=== PATIENT | female | born 1970 | race Asian ===

== ENCOUNTER → 2018-11-11 | Outpatient (CLI) | payer OTHER ==
[2018-11-13 15:23] LABS: RUBEOLA (MEASLES) IGG >300.0 AU/mL (Immune >29.9)
== END | disposition home or self-care (01) ==
LOC: EMPHLTH 15:04
PROVIDERS: ATTEND Internal Medicine
DX: Z02.1 Encounter for pre-employment examination (principal)
CPT/HCPCS: 86706; 86735; 86762; 86765; 86787